=== PATIENT | male | born 2000 ===

== ENCOUNTER 2024-05-28 17:29 | Emergency (ER) | payer OTHER, BC ==
[2024-05-28] MEDS ORDERED: Acetaminophen 500 MG TAB ONE (17:51)
== END 2024-05-28 18:32 | disposition home or self-care (01) ==
LOC: MADERS 17:29
DX: S00.33XA Contusion of nose, initial encounter (principal); Z55.6 Problems related to health literacy; V49.49XA Driver injured in collision with other motor vehicles in traffic accident, initial encounter; Y93.89 Activity, other specified
CPT/HCPCS: 70486; 72125